=== PATIENT | male | born 2000 | race Caucasian/White ===

== ENCOUNTER 2020-08-25 12:03 | Emergency (ER) | payer OTHER ==
[~2020-08-25 12:03] MED LIST: PEPCID20 MG PO; ZOFRAN ODT 4 MG4 MG SL
[2020-08-25 13:31] LABS: HEMOGLOBIN 14.2 gm/dl (14.0-17.5); RED BLOOD COUNT 4.87 M/UL (4.20-5.50); WHITE BLOOD COUNT 5.3 K/UL (4.5-11.0)
[2020-08-25 13:52] LABS: BUN/CREATININE RATIO 19 (0-10)
[2020-08-25] MEDS ORDERED: IBUPROFEN600 MG PO (14:36)
[2020-08-25] MEDS ORDERED: ZOFRAN4 MG PO (14:36)
== END 2020-08-25 16:56 | disposition home or self-care (01) ==
LOC: ER1 12:03
PROVIDERS: Physician Assistant Medical
DX: R10.9 Unspecified abdominal pain (principal); R11.0 Nausea; J45.909 Unspecified asthma, uncomplicated; Z90.49 Acquired absence of other specified parts of digestive tract; Z87.440 Personal history of urinary (tract) infections; Z86.16 Personal history of COVID-19
CPT/HCPCS: 36415; 80053; 81001; 85025; 85652; 86140; 99285

== ENCOUNTER 2020-09-04 20:52 | Emergency (ER) | payer OTHER ==
[~2020-09-04 20:52] MED LIST changes: +IBUPROFEN600 MG PO; +ZOFRAN4 MG PO
[2020-09-04] MEDS ORDERED: MUCINEX600 MG PO (21:50)
[2020-09-04] MEDS ORDERED: IBUPROFEN800 MG PO (21:50)
== END 2020-09-04 22:55 | disposition home or self-care (01) ==
LOC: ER1 20:52
DX: R42 Dizziness and giddiness (principal); R09.82 Postnasal drip
CPT/HCPCS: 87081; 87880; 99283

== ENCOUNTER 2020-09-10 16:26 | Emergency (ER) | payer OTHER ==
[~2020-09-10 16:26] MED LIST changes: +IBUPROFEN800 MG PO; +MUCINEX600 MG PO
== END 2020-09-10 20:37 | disposition home or self-care (01) ==
LOC: ER1 16:26
DX: N50.811 Right testicular pain (principal); J45.909 Unspecified asthma, uncomplicated
CPT/HCPCS: 76870; 81001; 99284

== ENCOUNTER → 2020-09-18 | Day surgery (SDC) | payer OTHER ==
[~2020-09-18] MED LIST changes: +DOXYCYCLINE HY100 MG PO
== END | disposition home or self-care (01) ==
LOC: OR 08:00
PROVIDERS: Internal Medicine Gastroenterology
PROC: 0DB78ZX Excision of Stomach, Pylorus, Via Natural or Artificial Opening Endoscopic, Diagnostic (ICD-10-PCS; 2020-09-18)
PROC: 0DB68ZX Excision of Stomach, Via Natural or Artificial Opening Endoscopic, Diagnostic (ICD-10-PCS; 2020-09-18)
PROC: 0DB38ZX Excision of Lower Esophagus, Via Natural or Artificial Opening Endoscopic, Diagnostic (ICD-10-PCS; 2020-09-18)
PROC: 0DB98ZX Excision of Duodenum, Via Natural or Artificial Opening Endoscopic, Diagnostic (ICD-10-PCS; principal; 2020-09-18 11:20)
DX: K29.70 Gastritis, unspecified, without bleeding (principal); B96.81 Helicobacter pylori [H. pylori] as the cause of diseases classified elsewhere; K21.00 Gastro-esophageal reflux disease with esophagitis, without bleeding; K22.70 Barrett's esophagus without dysplasia; K22.8 Other specified diseases of esophagus; J45.909 Unspecified asthma, uncomplicated; Z20.822 Contact with and (suspected) exposure to COVID-19
CPT/HCPCS: J2250; J2704; J3010; J7040

== ENCOUNTER 2020-09-20 20:25 | Emergency (ER) | payer OTHER ==
[~2020-09-20 20:25] MED LIST changes: -DOXYCYCLINE HY100 MG PO
[2020-09-20 23:13] LABS: HEMOGLOBIN 14.2 gm/dl (14.0-17.5); RED BLOOD COUNT 4.85 M/UL (4.20-5.50); WHITE BLOOD COUNT 8.5 K/UL (4.5-11.0)
[2020-09-20 23:19] LABS: BUN/CREATININE RATIO 25 (0-10)
[2020-09-21] MEDS ORDERED: DOXYCYCLINE HY100 MG PO (00:26)
[2020-09-23 21:10] LABS: CHLAMYDIA TRACHOMATIS, NAA Negative (Negative); NEISSERIA GONORRHOEAE, NAA Negative (Negative)
== END 2020-09-21 00:52 | disposition home or self-care (01) ==
LOC: ER1 20:25
PROVIDERS: Physician Assistant
DX: K59.00 Constipation, unspecified (principal); N50.812 Left testicular pain; J45.909 Unspecified asthma, uncomplicated; K21.9 Gastro-esophageal reflux disease without esophagitis; Z79.899 Other long term (current) drug therapy; Z90.49 Acquired absence of other specified parts of digestive tract
CPT/HCPCS: 80048; 81001; 85025; 96372; 99284; J0696

== ENCOUNTER 2020-09-22 19:32 | Emergency (ER) | payer OTHER ==
[~2020-09-22 19:32] MED LIST changes: +DOXYCYCLINE HY100 MG PO
[2020-09-24 19:11] LABS: CHLAMYDIA TRACHOMATIS, NAA Negative (Negative); NEISSERIA GONORRHOEAE, NAA Negative (Negative)
== END 2020-09-22 23:00 | disposition home or self-care (01) ==
LOC: ER1 19:32
PROVIDERS: Emergency Medicine
DX: G91.9 Hydrocephalus, unspecified (principal); J45.909 Unspecified asthma, uncomplicated; Z86.73 Personal history of transient ischemic attack (TIA), and cerebral infarction without residual deficits
CPT/HCPCS: 76870; 81001; 99284

== ENCOUNTER 2020-09-27 21:30 | Emergency (ER) | payer OTHER ==
[2020-09-27] MEDS ORDERED: IBUPROFEN600 MG PO (23:17)
== END 2020-09-27 23:25 | disposition home or self-care (01) ==
LOC: ER1 21:30
DX: R07.89 Other chest pain (principal); K21.9 Gastro-esophageal reflux disease without esophagitis; J45.909 Unspecified asthma, uncomplicated
CPT/HCPCS: 71045; 93005; 99285

== ENCOUNTER → 2020-10-22 | Outpatient (CLI) | payer OTHER ==
[2020-10-23 09:14] LABS: HIV SCREEN 4TH GENERATION WRFX Non Reactive (Non Reactive)
[2020-10-23 11:14] LABS: HBSAG SCREEN Negative (Negative); HEP A AB, IGM Negative (Negative); HEP B CORE AB, IGM Negative (Negative); HEP C VIRUS AB <0.1 (0.0-0.9)
[2020-10-23 13:14] LABS: TREPONEMA PALLIDUM ANTIBODIES Non Reactive (Non Reactive)
[2020-10-24 19:08] LABS: CHLAMYDIA TRACHOMATIS, NAA Negative (Negative); NEISSERIA GONORRHOEAE, NAA Negative (Negative)
[2020-10-25 00:09] LABS: HHV 6 IGG ANTIBODIES 1.29 index (.); HUMAN HERPES VIRUS TYPE 6 IGM <1:10 (Neg:<1:10)
== END ==
LOC: LAB 10:32
PROVIDERS: Surgery
DX: R36.9 Urethral discharge, unspecified (principal)
CPT/HCPCS: 36415; 80074; 86780; 87389

== ENCOUNTER 2020-11-22 10:22 | Emergency (ER) | payer OTHER ==
[2020-11-25 03:06] LABS: CHLAMYDIA TRACHOMATIS, NAA Negative (Negative); NEISSERIA GONORRHOEAE, NAA Negative (Negative)
== END 2020-11-22 13:50 | disposition home or self-care (01) ==
LOC: ER1 10:22
PROVIDERS: Physician Assistant Medical
DX: N43.3 Hydrocele, unspecified (principal); Z90.49 Acquired absence of other specified parts of digestive tract
CPT/HCPCS: 76870; 81001; 99283

== ENCOUNTER 2020-12-02 00:23 | Emergency (ER) | payer OTHER ==
[2020-12-02 01:11] LABS: HEMOGLOBIN 14.7 gm/dl (14.0-17.5); RED BLOOD COUNT 4.92 M/UL (4.20-5.50); WHITE BLOOD COUNT 8.7 K/UL (4.5-11.0)
[2020-12-02 01:50] LABS: BUN/CREATININE RATIO 16 (0-10)
== END 2020-12-02 02:25 | disposition home or self-care (01) ==
LOC: ER1 00:23
PROVIDERS: Family Medicine
DX: K40.90 Unilateral inguinal hernia, without obstruction or gangrene, not specified as recurrent (principal)
CPT/HCPCS: 80053; 82550; 82553; 83874; 84484; 85025; 93005; 99283

== ENCOUNTER 2020-12-10 02:54 | Emergency (ER) | payer OTHER ==
[2020-12-10 04:01] LABS: HEMOGLOBIN 14.6 gm/dl (14.0-17.5); RED BLOOD COUNT 4.92 M/UL (4.20-5.50); WHITE BLOOD COUNT 9.8 K/UL (4.5-11.0)
[2020-12-10 04:29] LABS: BUN/CREATININE RATIO 22 (0-10)
== END 2020-12-10 06:35 | disposition home or self-care (01) ==
LOC: ER1 02:54
PROVIDERS: Physician Assistant
DX: N43.3 Hydrocele, unspecified (principal); Z90.49 Acquired absence of other specified parts of digestive tract; Z90.89 Acquired absence of other organs
CPT/HCPCS: 76870; 80053; 81001; 85025; 87086; 99284

== ENCOUNTER 2020-12-28 09:16 | Emergency (ER) | payer OTHER | END 2020-12-28 09:55 | disposition home or self-care (01) | LOC: ER1 09:16 | DX: R59.0 Localized enlarged lymph nodes (principal); Z90.49 Acquired absence of other specified parts of digestive tract | CPT/HCPCS: 93005; 99283 ==

== ENCOUNTER 2021-01-10 11:39 | Emergency (ER) | payer OTHER ==
[2021-01-10 14:13] LABS: HEMOGLOBIN 15.7 gm/dl (14.0-17.5); RED BLOOD COUNT 5.24 M/UL (4.20-5.50); WHITE BLOOD COUNT 7.3 K/UL (4.5-11.0)
[2021-01-10 14:40] LABS: BUN/CREATININE RATIO 19 (0-10)
== END 2021-01-10 17:25 | disposition home or self-care (01) ==
LOC: ER1 11:39
PROVIDERS: Physician Assistant Medical
DX: R10.31 Right lower quadrant pain (principal); J45.909 Unspecified asthma, uncomplicated; Z90.49 Acquired absence of other specified parts of digestive tract
CPT/HCPCS: 80053; 81001; 85025; 99284

== ENCOUNTER 2021-01-29 21:40 | Emergency (ER) | payer OTHER | END 2021-01-29 23:30 | disposition left against medical advice (07) | LOC: ER1 21:40 | DX: Z53.21 Procedure and treatment not carried out due to patient leaving prior to being seen by health care provider (principal) ==

== ENCOUNTER → 2021-01-31 | Outpatient (CLI) | payer OTHER | LOC: KOH-I 14:52 | DX: E04.9 Nontoxic goiter, unspecified (principal); E04.1 Nontoxic single thyroid nodule | CPT/HCPCS: 76536 ==

== ENCOUNTER 2021-02-01 12:02 | Emergency (ER) | payer OTHER ==
[2021-02-01 13:06] LABS: HEMOGLOBIN 14.9 gm/dl (14.0-17.5); RED BLOOD COUNT 5.02 M/UL (4.20-5.50); WHITE BLOOD COUNT 6.2 K/UL (4.5-11.0)
[2021-02-01 13:26] LABS: BUN/CREATININE RATIO 17 (0-10)
== END 2021-02-01 16:27 | disposition home or self-care (01) ==
LOC: ER1 12:02
DX: N43.3 Hydrocele, unspecified (principal); R10.9 Unspecified abdominal pain; J45.909 Unspecified asthma, uncomplicated; K21.9 Gastro-esophageal reflux disease without esophagitis
CPT/HCPCS: 76870; 80053; 81001; 83690; 85025; 96374; 99284; J2270; J2405; Q9967

== ENCOUNTER → 2021-02-13 | Outpatient (CLI) | payer OTHER | LOC: RAD 13:41 | DX: R07.9 Chest pain, unspecified (principal); R06.02 Shortness of breath | CPT/HCPCS: 71046 ==

== ENCOUNTER 2021-03-02 17:56 | Emergency (ER) | payer OTHER ==
[2021-03-02 19:32] LABS: HEMOGLOBIN 15.6 gm/dl (14.0-17.5); RED BLOOD COUNT 5.23 M/UL (4.20-5.50); WHITE BLOOD COUNT 6.3 K/UL (4.5-11.0)
[2021-03-02 20:02] LABS: BUN/CREATININE RATIO 19 (0-10)
== END 2021-03-02 21:10 | disposition home or self-care (01) ==
LOC: ER1 17:56
PROVIDERS: Physician Assistant
DX: R07.89 Other chest pain (principal); M54.2 Cervicalgia; Z90.49 Acquired absence of other specified parts of digestive tract; F17.290 Nicotine dependence, other tobacco product, uncomplicated; Z88.8 Allergy status to other drugs, medicaments and biological substances
CPT/HCPCS: 71046; 80053; 82550; 82553; 83874; 84484; 85025; 93005; 99285

== ENCOUNTER → 2021-03-13 | Outpatient (CLI) | payer OTHER | LOC: HEART 5 09:37 | DX: R00.1 Bradycardia, unspecified (principal); R07.9 Chest pain, unspecified; R42 Dizziness and giddiness | CPT/HCPCS: 93306 ==

== ENCOUNTER 2021-04-22 20:17 | Emergency (ER) | payer OTHER | END 2021-04-22 22:32 | disposition home or self-care (01) | LOC: ER1 20:17 | DX: N43.3 Hydrocele, unspecified (principal) | CPT/HCPCS: 76870; 99284 ==

== ENCOUNTER → 2021-05-30 | Outpatient (CLI) | payer OTHER ==
[2021-05-30 09:59] LABS: BUN/CREATININE RATIO 19 (0-10)
== END ==
LOC: LAB 08:00
PROVIDERS: Nurse Practitioner Family
DX: R63.4 Abnormal weight loss (principal)
CPT/HCPCS: 36415; 80053; 82024; 82533; 83036; 84439; 84443

== ENCOUNTER → 2021-06-20 | Outpatient (CLI) | payer OTHER | LOC: US 14:08 | DX: N64.4 Mastodynia (principal) | CPT/HCPCS: 76641-LT ==

== ENCOUNTER 2021-07-07 22:46 | Emergency (ER) | payer OTHER ==
[2021-07-08 02:02] LABS: RED BLOOD COUNT 5.31 M/UL (4.20-5.50); WHITE BLOOD COUNT 7.4 K/UL (4.5-11.0)
[2021-07-08 02:16] LABS: BUN/CREATININE RATIO 27 (0-10)
== END 2021-07-08 03:25 | disposition home or self-care (01) ==
LOC: ER1 22:46
PROVIDERS: Physician Assistant
DX: R05.9 Cough, unspecified (principal); R10.9 Unspecified abdominal pain; Z20.822 Contact with and (suspected) exposure to COVID-19; J45.909 Unspecified asthma, uncomplicated; K21.9 Gastro-esophageal reflux disease without esophagitis
CPT/HCPCS: 0240U; 71045; 80053; 81001; 83690; 85025; 99284

== ENCOUNTER 2021-07-14 18:01 | Emergency (ER) | payer OTHER ==
[2021-07-14 19:41] LABS: HEMOGLOBIN 15.4 gm/dl (14.0-17.5); RED BLOOD COUNT 5.16 M/UL (4.20-5.50); WHITE BLOOD COUNT 9.3 K/UL (4.5-11.0)
[2021-07-14 20:12] LABS: BUN/CREATININE RATIO 22 (0-10)
== END 2021-07-14 21:47 | disposition home or self-care (01) ==
LOC: ER1 18:01
PROVIDERS: Physician Assistant
DX: R07.9 Chest pain, unspecified (principal); F41.9 Anxiety disorder, unspecified; J45.909 Unspecified asthma, uncomplicated
CPT/HCPCS: 71046; 80053; 82550; 82553; 83874; 84484; 85025; 93005; 99285

== ENCOUNTER 2021-07-20 09:31 | Emergency (ER) | payer OTHER ==
[2021-07-20] MEDS ORDERED: BENZONATATE200 MG PO ×2 (12:10)
== END 2021-07-20 12:32 | disposition home or self-care (01) ==
LOC: ER1 09:31
DX: U07.1 COVID-19 (principal)
CPT/HCPCS: 71045; 99284

== ENCOUNTER 2021-07-23 16:55 | Emergency (ER) | payer OTHER ==
[~2021-07-23 16:55] MED LIST changes: +BENZONATATE200 MG PO
[2021-07-23 19:45] LABS: HEMOGLOBIN 15.5 gm/dl (14.0-17.5); RED BLOOD COUNT 5.17 M/UL (4.20-5.50); WHITE BLOOD COUNT 7.9 K/UL (4.5-11.0)
[2021-07-23 20:14] LABS: BUN/CREATININE RATIO 19 (0-10)
[2021-07-23] MEDS ORDERED: MUCINEX D ER 11 EACH PO (22:23)
[2021-07-23] MEDS ORDERED: FLONASE 0.05% N16 GM (22:23)
== END 2021-07-23 22:29 | disposition home or self-care (01) ==
LOC: ER1 16:55
PROVIDERS: Emergency Medicine
DX: U07.1 COVID-19 (principal)
CPT/HCPCS: 0240U; 80048; 85025; 86403; 87081; 87880; 99283

== ENCOUNTER 2021-07-30 13:38 | Emergency (ER) | payer OTHER ==
[~2021-07-30 13:38] MED LIST changes: +FLONASE 0.05% N16 GM; +MUCINEX D ER 11 EACH PO
[2021-07-30 14:53] LABS: BUN/CREATININE RATIO 20 (0-10)
[2021-07-30 14:54] LABS: HEMOGLOBIN 15.5 gm/dl (14.0-17.5); RED BLOOD COUNT 5.19 M/UL (4.20-5.50); WHITE BLOOD COUNT 7.6 K/UL (4.5-11.0)
== END 2021-07-30 15:48 | disposition home or self-care (01) ==
LOC: ER1 13:38
PROVIDERS: Preventive Medicine Occupational Medicine
DX: U09.9 Post COVID-19 condition, unspecified (principal)
CPT/HCPCS: 71045; 80048; 81001; 85025; 87086; 99285

== ENCOUNTER 2021-08-08 11:28 | Emergency (ER) | payer OTHER ==
[2021-08-08 12:22] LABS: HEMOGLOBIN 15.1 gm/dl (14.0-17.5); RED BLOOD COUNT 5.1 M/UL (4.20-5.50); WHITE BLOOD COUNT 8.9 K/UL (4.5-11.0)
[2021-08-08 12:40] LABS: BUN/CREATININE RATIO 14 (0-10)
[2021-08-08] MEDS ORDERED: COLACE100 MG PO (15:15)
== END 2021-08-08 15:35 | disposition home or self-care (01) ==
LOC: ER1 11:28
PROVIDERS: Physician Assistant
DX: R10.31 Right lower quadrant pain (principal); R10.9 Unspecified abdominal pain; J45.909 Unspecified asthma, uncomplicated
CPT/HCPCS: 80053; 81001; 83690; 85025; 96374; 99284; J1885; Q9967

== ENCOUNTER 2021-08-14 12:19 | Emergency (ER) | payer OTHER ==
[~2021-08-14 12:19] MED LIST changes: +COLACE100 MG PO
[2021-08-14 13:58] LABS: HEMOGLOBIN 15.1 gm/dl (14.0-17.5); RED BLOOD COUNT 5.18 M/UL (4.20-5.50); WHITE BLOOD COUNT 5.4 K/UL (4.5-11.0)
[2021-08-14 14:22] LABS: BUN/CREATININE RATIO 22 (0-10)
[2021-08-14] MEDS ORDERED: DOXYCYCLINE HY100 MG PO (15:38)
[2021-08-14] MEDS ORDERED: AMOXICILLIN500 MG PO (15:42)
[2021-08-17] MEDS ORDERED: NAPROSYN EC 50500 MG PO (01:22)
== END 2021-08-14 15:44 | disposition home or self-care (01) ==
LOC: ER1 12:19
PROVIDERS: Physician Assistant Medical
DX: M54.2 Cervicalgia (principal); I88.9 Nonspecific lymphadenitis, unspecified; Z90.49 Acquired absence of other specified parts of digestive tract
CPT/HCPCS: 70491; 80053; 85025; 86403; 99284; Q9967

== ENCOUNTER → 2021-08-16 | Emergency (ER) | payer OTHER ==
[~2021-08-16] MED LIST changes: +AMOXICILLIN500 MG PO; +NAPROSYN EC 50500 MG PO
[2021-08-17 00:42] LABS: HEMOGLOBIN 14.8 gm/dl (14.0-17.5); RED BLOOD COUNT 4.96 M/UL (4.20-5.50); WHITE BLOOD COUNT 5.6 K/UL (4.5-11.0)
[2021-08-17 01:07] LABS: BUN/CREATININE RATIO 23 (0-10)
== END | disposition home or self-care (01) ==
LOC: ER1 22:33
PROVIDERS: Physician Assistant
DX: R07.9 Chest pain, unspecified (principal); K21.9 Gastro-esophageal reflux disease without esophagitis; Z88.1 Allergy status to other antibiotic agents; Z88.8 Allergy status to other drugs, medicaments and biological substances
CPT/HCPCS: 71045; 80053; 82550; 82553; 83874; 84484; 85025; 85379; 99285

== ENCOUNTER 2021-09-01 13:38 | Emergency (ER) | payer OTHER ==
[2021-09-01 15:51] LABS: HEMOGLOBIN 15.8 gm/dl (14.0-17.5); RED BLOOD COUNT 5.32 M/UL (4.20-5.50); WHITE BLOOD COUNT 7.3 K/UL (4.5-11.0)
[2021-09-01 16:10] LABS: BUN/CREATININE RATIO 15 (0-10)
[2021-09-01] MEDS ORDERED: ONDANSETRON ODT4 MG PO (17:23)
== END 2021-09-01 17:35 | disposition home or self-care (01) ==
LOC: ER1 13:38
PROVIDERS: Physician Assistant
DX: R10.9 Unspecified abdominal pain (principal); R11.0 Nausea; R19.7 Diarrhea, unspecified; J45.909 Unspecified asthma, uncomplicated; F17.220 Nicotine dependence, chewing tobacco, uncomplicated; Z88.5 Allergy status to narcotic agent; Z88.8 Allergy status to other drugs, medicaments and biological substances
CPT/HCPCS: 80053; 81001; 83690; 85025; 99284

== ENCOUNTER 2021-10-11 17:01 | Emergency (ER) | payer OTHER ==
[~2021-10-11 17:01] MED LIST changes: +ONDANSETRON ODT4 MG PO
[2021-10-11 21:28] LABS: HEMOGLOBIN 15.5 gm/dl (14.0-17.5); RED BLOOD COUNT 5.12 M/UL (4.20-5.50); WHITE BLOOD COUNT 8.3 K/UL (4.5-11.0)
[2021-10-11 21:47] LABS: BUN/CREATININE RATIO 23 (0-10)
[2021-10-11] MEDS ORDERED: K-TAB ER20 MEQ PO (22:17)
== END 2021-10-11 22:26 | disposition home or self-care (01) ==
LOC: ER1 17:01
PROVIDERS: Physician Assistant
DX: R05.9 Cough, unspecified (principal); E87.6 Hypokalemia; M79.10 Myalgia, unspecified site; Z20.822 Contact with and (suspected) exposure to COVID-19; J45.909 Unspecified asthma, uncomplicated; Z88.1 Allergy status to other antibiotic agents; Z88.8 Allergy status to other drugs, medicaments and biological substances
CPT/HCPCS: 0240U; 71045; 80053; 81001; 83605; 85025; 85379; 87086; 93005; 99285

== ENCOUNTER 2021-10-19 20:19 | Emergency (ER) | payer OTHER ==
[~2021-10-19 20:19] MED LIST changes: +K-TAB ER20 MEQ PO
== END 2021-10-20 01:24 | disposition home or self-care (01) ==
LOC: ER1 20:19
DX: S60.031A Contusion of right middle finger without damage to nail, initial encounter (principal); S60.021A Contusion of right index finger without damage to nail, initial encounter; J45.909 Unspecified asthma, uncomplicated; W23.0XXA Caught, crushed, jammed, or pinched between moving objects, initial encounter
CPT/HCPCS: 73130; 99283

== ENCOUNTER 2021-12-28 22:29 | Emergency (ER) | payer OTHER ==
[2021-12-28 23:21] LABS: HEMOGLOBIN 14.9 gm/dl (14.0-17.5); RED BLOOD COUNT 5.03 M/UL (4.20-5.50); WHITE BLOOD COUNT 8.7 K/UL (4.5-11.0)
[2021-12-29 00:46] LABS: BUN/CREATININE RATIO 15 (0-10)
[2021-12-29] MEDS ORDERED: ZOFRAN 4 MG TAB4 MG PO (01:24)
[2021-12-30 21:11] LABS: CHLAMYDIA TRACHOMATIS, NAA Negative (Negative); NEISSERIA GONORRHOEAE, NAA Negative (Negative)
== END 2021-12-29 01:27 | disposition home or self-care (01) ==
LOC: ER1 22:29
PROVIDERS: Nurse Practitioner
DX: K21.9 Gastro-esophageal reflux disease without esophagitis (principal); Z88.1 Allergy status to other antibiotic agents
CPT/HCPCS: 80053; 81001; 85025; 87086; 99284

== ENCOUNTER → 2022-01-01 | Outpatient (CLI) | payer OTHER ==
[~2022-01-01] MED LIST changes: +ZOFRAN 4 MG TAB4 MG PO
== END ==
LOC: MRI 12-30 11:00
DX: H90.3 Sensorineural hearing loss, bilateral (principal)
CPT/HCPCS: 70553; A9577

== ENCOUNTER 2022-01-09 14:36 | Emergency (ER) | payer OTHER | END 2022-01-09 18:00 | disposition left against medical advice (07) | LOC: ER1 14:36 | DX: Z53.21 Procedure and treatment not carried out due to patient leaving prior to being seen by health care provider (principal) ==

== ENCOUNTER 2022-02-13 16:21 | Emergency (ER) | payer OTHER ==
[2022-02-13 16:59] LABS: HEMOGLOBIN 14.4 gm/dl (14.0-17.5); RED BLOOD COUNT 4.87 M/UL (4.20-5.50)
[2022-02-13 17:23] LABS: BUN/CREATININE RATIO 14 (0-10)
[2022-02-13] MEDS ORDERED: VIBRAMYCIN 100100 MG PO (19:39)
[2022-02-13] MEDS ORDERED: OMNICEF 300 MG300 MG PO (19:51)
== END 2022-02-13 19:51 | disposition home or self-care (01) ==
LOC: ER1 16:21
DX: N45.2 Orchitis (principal); J45.909 Unspecified asthma, uncomplicated; Z88.1 Allergy status to other antibiotic agents; Z20.822 Contact with and (suspected) exposure to COVID-19
CPT/HCPCS: 0240U; 71045; 76870; 80053; 82550; 82553; 83605; 84484; 85025; 93005; 96374; 99284; J0696